=== PATIENT | female | born 1985 | race Caucasian/White ===

== ENCOUNTER 2017-04-22 04:29 | Inpatient (IN) | payer MEDICAID ==
[2017-04-22 04:57] VITALS: BMI 30.5
[2017-04-22] MEDS ORDERED: Oxytocin 30 UNITS in Sodium Chloride 0.9% 500 ML IV PRN (05:00)
[2017-04-22] MEDS ORDERED: Lactated Ringer's 1,000 ML IV SCH (05:00)
--- NOTE | 2017-04-22 05:20 | OBADHP ---
Datetime: 04/22/2017 05:15 Admit Comment, IP Provider: 31 yo at 38+4 wks in labor GBS positive, IVF started Penicillin started for GBS prophylaxis H_P dictated, " [id number]" (ES) Abdomen - PN: Normal Back - PN: Normal Lungs - PN: Normal Heart - PN: Normal Neurologic - PN: Normal General - PN: Normal FHR - Baseline A Provider: 150's Membranes, Provider: Intact Contraction Comments Provider: Q2-3 Vital Signs Provider: Reviewed IP Chief Complaint: Uterine contractions NICHD Variability Prov Fetus A: Moderate 6-25bpm NICHD Accel Fetus A IP Provider: [id number] FHR Category Provider Fetus A: Category II NICHD Decel Fetus A IP Provider: Variable Dilatation, Provider: 4 Effacement, Provider: 100 Station, Provider: -1 Genitourinary Exam: Normal EGA AdmitDate IP: 38.4 IP Adm Impression: Term, intrauterine IP Admit Plan: Initiate labor protocol
[2017-04-22 05:38] LABS: BASO % 0.3 % (0.0-2.0); EOS # 0.1 K/uL (0.0-0.7); EOS % 0.6 % (0.0-4.0); HEMOGLOBIN 11.7 g/dL (12.0-16.0); LYMPH # 2.1 K/uL (1.0-4.3); LYMPH % 17.6 % (20.0-40.0); MEAN CORPUSCULAR HEMOGLOBIN 28.7 pg (27.0-31.0); MONO % 8.3 % (0.0-10.0); NEUT # 8.6 K/uL (1.8-7.0); NEUT % 73.2 % (50.0-75.0); NRBC % 0.1 % (0.0-0.0); RBC 4.06 Mil/uL (3.80-5.20); RED CELL DISTRIBUTION WIDTH 13.7 % (11.5-14.5); WHITE BLOOD COUNT 11.8 K/uL (4.8-10.8)
[2017-04-22] MEDS ORDERED: Lidocaine 1% Inj (20ml) ONE (07:50)
--- NOTE | 2017-04-22 07:55 | HP ---
HISTORY OF PRESENT ILLNESS: This is a 31-year-old G4, P 3-0-0-3 at 38 weeks and 4 days with an EDC of 05/02/2017 by LMP consistent with a 12 week ultrasound who reports that she has painful contraction that started around 11:00 a.m. She reports some spotting today and denies leaking of fluid and reports positive movement. The patient received her care at [facility]. This is complicated by the fact that the fetus has bilateral renal pyelectasis seen by ultrasound. On 04/05/2017, GBS was positive. The patient received her care [facility]. PAST MEDICAL HISTORY: Healthy. PAST SURGICAL HISTORY: None. MEDICATIONS: None. ALLERGIES: NO KNOWN DRUG ALLERGIES. FAMILY HISTORY: Noncontributory. SOCIAL HISTORY: The patient denies tobacco or alcohol and no illicit drug use. GYNECOLOGIC HISTORY: Menarche at 11 and regular periods. The patient denies any sexually transmitted diseases or any abnormal Pap. OBSTETRIC HISTORY: In 06/2001, the patient underwent a spontaneous vaginal delivery of a male infant at 40 plus weeks weighing 6 pounds 6 ounces. In 07/2010, the underwent a spontaneous vaginal delivery of a male infant at 40 plus weeks weighing 7 pounds 15 ounces and on 10/2016, the patient underwent a spontaneous vaginal delivery of a female weighing 6 pounds 4 ounces at 40 weeks. LABORATORY DATA: On 10/12/2016, blood type is B positive. Antibody screen is negative. Cystic fibrosis, no variant detected. Drug abuse profile negative. Fragile X negative, not a carrier. Hemoglobin electrophoresis normal. Hemoglobin present. Hepatitis B surface antigen is negative. HIV is nonreactive. QuantiFERON negative. Rubella immune and RPR nonreactive. Spinal muscular atrophy, SMN1 copy number of 2, reduced carrier risk. 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 On 11/09/2016 her pap smear is negative and HPV is negative. On 11/09/2016, gonorrhea, chlamydia, and sugar negative. On 12/07/2016, her AFP screen negative and also the patient has signed a papers for a bilateral tubal ligation in the event that she has a . PHYSICAL EXAMINATION: VITAL SIGNS: Afebrile. Vital signs stable. GENERAL: The patient appears uncomfortable, lying in bed. HEART: Regular rate and rhythm. CHEST: Lungs clear to auscultation bilaterally. EXTREMITIES: Nontender and no edema. VAGINAL: 4 cm 100% effaced, -1 station at 4:38 a.m. EXTERNAL MONITORING. The baseline is in the 150s with a few variable decelerations, the lowest to the 90s, lasting about 30 seconds, moderate variability. Contractions like every 2 to 3. ASSESSMENT AND PLAN: This is a 31-year-old G4, P3-0-0-3 at 38 weeks and 4 days in labor. The patient admitted to labor and delivery, group B streptococcus positive. Penicillin started for group B streptococcus prophylaxis. Intravenous fluids started. Chapo Courtney MD
[2017-04-22 07:57] VITALS: O2SAT 100
[2017-04-22] MEDS ORDERED: Benzocaine/Menthol SPRAY TOP PRN (09:12)
[2017-04-22] MEDS ORDERED: Oxycodone/Acetaminophen 5/325 mg Tab PO PRN (09:12)
--- NOTE | 2017-04-22 09:22 | OBDS ---
MATERNAL INFORMATION Provider Comments: of live female over intact perineum in ADELITA presentation followed by jeri steel and rest of , nuchal cord loose, mouth and nose suctioned, cord clamped and cut, cord blood obtained, placenta delivered spontaneously, fundus firm, no lacerations to repair, EBL = 100mL LABOR SUMMARY EDC: 05/02/2017 00:00 No. Babies in Womb: 1 LABOR INFORMATION Group B Beta Strep: Positive
[2017-04-22] MEDS ORDERED: Influenza Vaccine 18yr & older 0.5 ML/45 MCG SYR IM ONE (20:03)
[2017-04-23 06:58] LABS: BASO % 0.2 % (0.0-2.0); EOS # 0.2 K/uL (0.0-0.7); EOS % 1.9 % (0.0-4.0); HEMOGLOBIN 10.1 g/dL (12.0-16.0); LYMPH # 2.1 K/uL (1.0-4.3); LYMPH % 25.2 % (20.0-40.0); MEAN CELL VOLUME 87.8 fl (81.0-99.0); MEAN CORPUSCULAR HGB CONC 33.1 g/dL (33.0-37.0); MEAN PLATELET VOLUME 7.8 fl (7.2-11.7); MONO # 0.7 K/uL (0.0-0.8); MONO % 8.6 % (0.0-10.0); NEUT # 5.5 K/uL (1.8-7.0); NEUT % 64.1 % (50.0-75.0); NRBC % 0.1 % (0.0-0.0); RBC 3.48 Mil/uL (3.80-5.20); RED CELL DISTRIBUTION WIDTH 13.9 % (11.5-14.5); WHITE BLOOD COUNT 8.5 K/uL (4.8-10.8)
[2017-04-23] MEDS: Multivitamin With Minerals Tab PO SCH (08:54)
--- NOTE | 2017-04-23 10:24 | OBPPN ---
Datetime: 04/23/2017 06:29 PP Pain Prov: Within normal limits PP Nausea Prov: Denies PP Flatus Prov: Yes PP BM Prov: No PP Breasts Prov: Not Done PP Heart Prov: Normal PP Lungs Prov: Normal PP Abdomen/Uterus Prov: Normal PP Lochia Prov: Normal PP Vulva/Perineum Prov: Not Done PP CVA Tenderness Prov: Not Done PP Extremities Prov: Normal PP C/S Incision Prov: Not Applicable PP Progress Prov: Normal PP Impression Prov: Normal progression PP Plan Prov: Continue present management PP Progress Note Prov: PPD 1 S: 31 y/o female evaluated on PPD1. Pt was seen and examined at bedside this AM. No overnigh t events. Pt reports mild abdominal pain, but well controlled with pain meds. Ambulating. Breast feed ing (with formula supplementation) without difficulty. Lochia is similar to menses volume. No BM, but pasting gas per rectum. Denies fever/chills, diarrhea, nausea/vomiting, chest pain, dyspnea, and di zziness. O: VS: stable GEN: NAD Cardio: S1S2, no murmurs Lungs: clear breath sounds b/l, no wheezing Abdomen: BS+, appropriate tenderness to palpation. Uterus is firm and at the level of the umbilic us. EXT: No edema, calves nontender NEURO/PSYCH: AAOx3, no grossly focal deficits, preserved affect and mood. Assessment/Plan: 31 y/o female s/p on 04/22/17 doing well on PPD1. Pt remains afebrile, tolerating pain with medication, doing well on PPD#1. F/U Post H/H. Tolerating diet. Anticip ating d/c on 04/24/17. Continue with current management. Pt received flu shot yesterday. Motrin 600mg q6 for pain. Encourage and ambulating Senakot 17.2 mg PO HS Case d/w OB attending. Martha Diego, PGY1 [facility] : on Rounds this morning, I saw and examined this patient. Agree with PGY1 note. CASSI ALMAZAN PP Procedures: None Vital Signs Provider PP: Reviewed; Within Normal Limits
[2017-04-24] MEDS: Multivitamin With Minerals Tab PO SCH (08:13)
[2017-04-24] MEDS ORDERED: Tdap Vaccine 0.5 ml Vial (10-64 yrs) IM ONE (09:00)
--- NOTE | 2017-04-24 09:00 | OBPPN ---
Datetime: 04/24/2017 06:20 PP Pain Prov: Within normal limits PP Nausea Prov: Denies PP Flatus Prov: Yes PP BM Prov: No PP Breasts Prov: Not Done PP Heart Prov: Normal PP Lungs Prov: Normal PP Abdomen/Uterus Prov: Normal PP Lochia Prov: Normal PP Vulva/Perineum Prov: Not Done PP CVA Tenderness Prov: Not Done PP Extremities Prov: Normal PP C/S Incision Prov: Not Applicable PP Progress Prov: Normal PP Impression Prov: Normal progression PP Plan Prov: Continue present management; Discharge PP Progress Note Prov: PPD 2 S: 31 y/o female s/p on 04/22/17 evaluated on PPD2. Pt was seen and examined at bedside this AM. No overnight events. Pt reports mild abdominal pain, but well controlled with pain meds. Amb ulating without lightheadedness/dizziness/papatations/sob. Breast feeding (with formula supplementati on) without difficulty. Lochia is similar to menses volume. No BM, but pasting gas per rectum. Denie s fever/chills, diarrhea, nausea/vomiting, chest pain, dyspnea, and dizziness. O: VS: stable GEN: NAD Cardio: S1S2, no murmurs Lungs: clear breath sounds b/l, no wheezing Abdomen: BS+, appropriate tenderness to palpation. Uterus is firm and at the level of the umbilic us. EXT: No edema, calves nontender NEURO/PSYCH: AAOx3, no grossly focal deficits, preserved affect and mood. H/H (post ): 10.1/30.6 Assessment/Plan: 31 y/o female s/p on 04/22/17 doing well on PPD2. Pt remains afebrile, tolerating pain with medication. Asymptomatic anemia. Tolerating diet. Continue with current managem ent. Flu shot received. Will receive TDAp today.Anticipating d/c today. Motrin 600mg q6 for pain. Encourage and ambulating Senakot 17.2 mg PO HS Case d/w OB attending. Martha Diego, PGY1 The patient was seen with the resident I agree with the note IP PP Procedures: None Vital Signs Provider PP: Reviewed; Within Normal Limits
--- NOTE | 2017-04-24 09:00 | OBDCSUM ---
Datetime: 04/24/2017 06:25 Discharged to, Provider: Home Follow up at, Provider: MD [facility] Instr Activity: Normal activity Disch Instr Diet: Regular Discharge Instructions, Provider: Routine instructions given Discharge Diagnosis, Provider: Term Delivered Follow up in weeks, Provider: 4-6wks Disch Referrals: None Contraception discussed, Prov: Yes Disch Activity Restrictions: No sexual activity; Nothing in vagina - Garro[place]ales, tampons, douche Discharge Comment, Provider: 31 y/o female s/p on 04/22/17 complications: none Post : Asymptomatic anemia Baby: Female 3135g, 9/9 Discharge Instructions: 6. Follow up with OBGYN in 4-6 weeks 7. ER precautions given 8. Encourage 9. Continue taking PNV 10. RX provided: Ibuprofen 600mg, Colace 100mg BID, Ferrous Sulfate 325mg BID Discussed with OB Hospitalist Abigail, PGY1 Patient cleared for discharge The patient was seen with the resident I agree with the note Contraception after Delivery: IUD
[2017-04-24 18:19] VITALS: BP 127/75; PULSE 68; RESP 20; TEMP 98.3
== END 2017-04-24 14:13 | disposition home or self-care (01) | DRG 775 ==
LOC: H.EROB2 04:29 → H.L&D 04:57 → H.OB/GYN 10:46
PROVIDERS: ADMIT Obstetrics & Gynecology; ATTEND Obstetrics & Gynecology
PROC: 10E0XZZ Delivery of Products of Conception, External Approach (ICD-10-PCS; principal; 2017-04-22)
PROC: 4A1HXCZ Monitoring of Products of Conception, Cardiac Rate, External Approach (ICD-10-PCS; 2017-04-22)
PROC: 3E0234Z Introduction of Serum, Toxoid and Vaccine into Muscle, Percutaneous Approach (ICD-10-PCS; 2017-04-22)
DX: O69.81X0 Labor and delivery complicated by cord around neck, without compression, not applicable or unspecified (principal); O99.824 Streptococcus B carrier state complicating childbirth; Z37.0 Single live birth; Z3A.38 38 weeks gestation of pregnancy; Z23 Encounter for immunization